=== PATIENT | female | born 1990 | race Caucasian/White ===

== ENCOUNTER 2017-09-19 06:27 | Inpatient (IN) | payer MEDICAID ==
[2017-09-19] MEDS ORDERED: MISOPROSTOL 200 MCG TAB PR ×2 (07:00→14:00)
[2017-09-19] MEDS ORDERED: OXYTOCIN 30 UNITS/LR 500 ML BAG IV (07:00)
[2017-09-19] MEDS ORDERED: CARBOPROST 250 MCG INJ IM (07:00)
[2017-09-19] MEDS ORDERED: OXYTOCIN 30 UNITS/LR 500 ML IV (07:00)
[2017-09-19] MEDS ORDERED: METHYLERGONOVINE 0.2 MG INJ IM (07:00)
[2017-09-19] MEDS: LACTATED RINGER'S 1,000 ML IV ×3 (07:11→18:47)
[2017-09-19 07:41] LABS: ADD MAN DIFF? NO
[2017-09-19 07:43] LABS: WHITE BLOOD COUNT 8.8 10^3/ul (4.8-10.8)
[2017-09-19 07:43] LABS: BASOPHILS % 0.1 % (0.0-2.0); EOSINOPHILS # 0.1 10^3/ul (0.0-0.5); EOSINOPHILS % 1.5 % (0.0-7.0); HEMATOCRIT 36.2 % (37.0-47.0); HEMOGLOBIN 12.5 g/dl (12.0-16.0); LYMPHOCYTES # 1.6 10^3/ul (0.8-2.9); LYMPHOCYTES % 17.9 % (15.0-51.0); MEAN CORPUSCULAR HEMOGLOBIN 30.6 pg (29.0-33.0); MEAN CORPUSCULAR HGB CONC 34.5 g/dl (32.0-37.0); MEAN CORPUSCULAR VOLUME 88.5 fl (82.0-101.0); MEAN PLATELET VOLUME 9.7 fl (7.4-10.4); MONOCYTE # 0.5 10^3/ul (0.3-0.9); MONOCYTES % 5.9 % (0.0-11.0); NEUTROPHIL # 6.5 10^3/ul (1.6-7.5); NEUTROPHILS % 73.9 % (39.0-77.0); PLATELET COUNT 230 10^3/UL (140-415); RED BLOOD COUNT 4.09 10^6/ul (4.20-5.40)
[2017-09-19] MEDS: CITRIC ACID/SODIUM CITRATE 15 ML CUP PO (07:56)
[2017-09-19] MEDS: ONDANSETRON 4 MG INJ IV (07:57)
[2017-09-19] MEDS: CEFAZOLIN 2 GM/50 ML (PMX) 50 ML IV (07:57)
[2017-09-19 08:03] LABS: INR 0.92; PROTIME 12.4 Sec (11.9-14.9)
[2017-09-19 08:04] LABS: PARTIAL THROMBOPLASTIN TIME 29.1 Sec (25.0-35.0)
[2017-09-19 08:09] LABS: GLUCOSE 87 mg/dl (70-220)
[2017-09-19 08:41] LABS: HEPATITIS B SURFACE ANTIGEN NEGATIVE (NEGATIVE)
[2017-09-19] MEDS ORDERED: morphine SULFATE/PF (10 MG/10 ML) INJ (10:23)
[2017-09-19] MEDS ORDERED: METOCLOPRAMIDE 10 MG INJ (10:23)
[2017-09-19] MEDS ORDERED: BUPIVACAINE 0.75%/DEXT (SPINAL) 2 ML INJ (10:24)
[2017-09-19] MEDS ORDERED: DEXAMETHASONE 4 MG/ML 1 ML INJ (10:24)
[2017-09-19] MEDS ORDERED: KETOROLAC 30 MG INJ (10:24)
[2017-09-19] MEDS ORDERED: PHENYLephrine (100 MCG/ML) 5ML SYG ×2 (10:24→12:27)
[2017-09-19] MEDS ORDERED: OXYTOCIN 10 UNIT INJ (10:24)
[2017-09-19] MEDS ORDERED: MEPERIDINE 100 MG INJ (13:10)
[2017-09-19] MEDS ORDERED: HYDROmorphONE 0.5 MG/0.5 ML SYG IV ×2 (13:30)
[2017-09-19] MEDS ORDERED: NALOXONE (0.4 MG/ML) INJ IV (13:30)
[2017-09-19] MEDS ORDERED: morphine 2 MG INJ IV ×2 (13:30)
[2017-09-19] MEDS ORDERED: DIPHENHYDRAMINE 50 MG INJ IV (13:30)
[2017-09-19] MEDS ORDERED: ACETAMINOPHEN 500 MG TAB PO (13:30)
[2017-09-19] MEDS ORDERED: ONDANSETRON 4 MG INJ IV (13:30)
[2017-09-19] MEDS ORDERED: NALBUPHINE HCL (10 MG/1 ML) INJ IV (13:30)
[2017-09-19] MEDS ORDERED: NA PHOSPHATE/BIPHOS 133 ML ENEMA PR (14:00)
[2017-09-19] MEDS ORDERED: LANOLIN 7 GM TUBE TOP (14:00)
[2017-09-19] MEDS ORDERED: OXYCODONE/ACETAMINOPHEN (5/325) TAB PO (14:00)
[2017-09-19 15:03] LABS: RAPID PLASMA REAGIN NONREACTIVE (NR)
[2017-09-19] MEDS: SENNA/DOCUSATE NA (8.6MG/50MG) TAB PO (21:38)
[2017-09-20] MEDS: KETOROLAC 30 MG INJ IV ×2 (01:22→12:16)
[2017-09-20] MEDS: LACTATED RINGER'S 1,000 ML IV ×3 (02:48→10:19)
[2017-09-20 09:11] LABS: ADD MAN DIFF? NO
[2017-09-20 09:12] LABS: BASOPHILS % 0.1 % (0.0-2.0); EOSINOPHILS % 0.2 % (0.0-7.0); HEMATOCRIT 29.8 % (37.0-47.0); LYMPHOCYTES # 2.2 10^3/ul (0.8-2.9); LYMPHOCYTES % 22.2 % (15.0-51.0); MEAN CORPUSCULAR HEMOGLOBIN 30.6 pg (29.0-33.0); MEAN CORPUSCULAR HGB CONC 33.6 g/dl (32.0-37.0); MEAN CORPUSCULAR VOLUME 91.1 fl (82.0-101.0); MEAN PLATELET VOLUME 9.7 fl (7.4-10.4); MONOCYTE # 0.5 10^3/ul (0.3-0.9); MONOCYTES % 5.4 % (0.0-11.0); NEUTROPHIL # 6.9 10^3/ul (1.6-7.5); NEUTROPHILS % 71.4 % (39.0-77.0); PLATELET COUNT 200 10^3/UL (140-415); RED BLOOD COUNT 3.27 10^6/ul (4.20-5.40); RED CELL DISTRIBUTION WIDTH 13.1 % (11.5-14.5)
[2017-09-20 09:12] LABS: WHITE BLOOD COUNT 9.7 10^3/ul (4.8-10.8)
[2017-09-20] MEDS: SENNA/DOCUSATE NA (8.6MG/50MG) TAB PO ×2 (12:16→21:28)
[2017-09-20] MEDS: OXYCODONE/ACETAMINOPHEN (5/325) TAB PO (16:24)
[2017-09-20] MEDS: IBUPROFEN 600 MG TAB PO ×2 (18:09→23:56)
[2017-09-20] MEDS: HYDROCODONE/APAP (5/325) TAB PO (18:59)
[2017-09-21] MEDS: IBUPROFEN 600 MG TAB PO ×2 (05:25→11:27)
[2017-09-21] MEDS: HYDROCODONE/APAP (5/325) TAB PO (06:46)
[2017-09-21] MEDS: SENNA/DOCUSATE NA (8.6MG/50MG) TAB PO (08:52)
[2017-09-21] MEDS: DIPHTH/TET/ACEL PERTUSS (ADULT) 0.5 ML VIAL IM* (11:56)
[2017-09-22] MEDS ORDERED: MEASLES,MUMPS,RUBELLA VACCINE INJ SC* (09:00)
== END 2017-09-21 13:50 | disposition home or self-care (01) | DRG 766 ==
LOC: L-D 06:27 → PP1 15:51
PROVIDERS: Specialist
PROC: 10D00Z1 Extraction of Products of Conception, Low, Open Approach (ICD-10-PCS; principal; 2017-09-19 08:00)
DX: O34.211 Maternal care for low transverse scar from previous cesarean delivery (principal); Z3A.39 39 weeks gestation of pregnancy; Z37.0 Single live birth
CPT/HCPCS: 82947; 85025; 85610; 85730; 86592; 86850; 86900; 86901; 87340; 88307; 90715; 94760; 99464